=== PATIENT | male | born 1990 | race Caucasian/White ===

== ENCOUNTER 2024-03-09 17:56 | Emergency (ER) | payer SELFPAY ==
[~2024-03-09] VITALS: Ht 180.3 cm; Wt 137.9 kg
[2024-03-09 18:14] VITALS: O2SAT 99
[2024-03-09] MEDS ORDERED: EFEX1 PO (18:45)
[2024-03-09] MEDS ORDERED: HYDR-459 MT (18:45)
[2024-03-09] MEDS ORDERED: TRAZ-251 MT (18:55)
[2024-03-09] MEDS: HYDROXYZINE 25MG TABLET PO ONE (18:59)
[2024-03-09 19:00] VITALS: BP 149/87; PULSE 100; RESP 17; TEMP 98.2
== END 2024-03-09 19:01 | disposition home or self-care (01) ==
LOC: ER 17:56
DX: F31.9 Bipolar disorder, unspecified (principal); F20.9 Schizophrenia, unspecified; Z76.0 Encounter for issue of repeat prescription
CPT/HCPCS: 99283

== ENCOUNTER 2024-03-11 10:44 | Emergency (ER) | payer SELFPAY ==
[~2024-03-11] VITALS: Ht 177.8 cm; Wt 125.0 kg
[~2024-03-11 10:44] MED LIST: EFEX1 PO; HYDR-459 MT; TRAZ-251 MT
[2024-03-11 10:45] VITALS: O2SAT 100
[2024-03-11] MEDS: HALOPERIDOL LACTATE 5MG/ML VIAL IM ONE (12:24)
[2024-03-11 13:37] LABS: BASOPHILS % 0.2 % (0.0-2.0); HEMATOCRIT. 39.1 % (42.0-52.0); HEMOGLOBIN. 13.4 g/dL (14.0-18.0); LYMPHOCYTES % 14.3 % (20.0-50.0); MEAN CORPUSCULAR HEMOGLOBIN 27.5 pg (28.0-32.0); MEAN CORPUSCULAR HGB CONC 34.3 g/dL (31.0-37.0); MEAN CORPUSCULAR VOLUME 80.1 fL (80.0-94.0); MEAN PLATELET VOLUME 7.7 fl (7.4-10.4); MONOCYTES % 6.8 % (2.0-8.0); NEUTROPHILS % 78.7 % (40.0-76.0); PLATELET 304 x1000/uL (130-400); RED BLOOD CELL COUNT 4.88 mill/uL (4.7-6.1); RED CELL DISTRIBUTION WIDTH 13.9 % (11.6-14.6); WHITE BLOOD COUNT 14.4 x1000/uL (4.5-11.0)
[2024-03-11 13:44] LABS: CHLORIDE 104 mEq/L (98-107); POTASSIUM 3.6 mEq/L (3.5-5.1); SODIUM 136 mEq/L (136-145)
[2024-03-11 13:45] LABS: CARBON DIOXIDE 23 mEq/L (21-32)
[2024-03-11 13:50] LABS: GLUCOSE 155 mg/dL (70-105)
[2024-03-11 13:51] LABS: ETHANOL BLOOD < 10 mg/dL (<10); UREA NITROGEN BLOOD 23 mg/dL (9-23)
[2024-03-11 13:52] LABS: ACETAMINOPHEN < 2 ug/mL (10-30); ALANINE AMINOTRANSFERASE 19 IU/L (10-49); ALBUMIN 4.1 g/dL (3.2-4.8); ASPARTATE AMINOTRANSFERASE 31 IU/L (<34)
[2024-03-11 13:53] LABS: BILIRUBIN TOTAL 1.2 mg/dL (0.1-1.0)
[2024-03-11] MEDS: SODIUM CHLORIDE 0.9% 1,000 ML IV ONE (16:48)
[2024-03-11] MEDS: OLANZAPINE 5MG TABLET ODT PO SCH (17:25)
[2024-03-12 01:20] LABS: CLARITY URINE CLOUDY (CLEAR); COLOR URINE DARK YELLOW (YELLOW); GLUCOSE URINE NEGATIVE (NEGATIVE); KETONES URINE 1+ (NEGATIVE); LEUKOCYTE ESTERASE URINE NEGATIVE (NEGATIVE); NITRITE URINE NEGATIVE (NEGATIVE); OCCULT BLOOD URINE NEGATIVE (NEGATIVE); PH URINE 5.5 (4.5-8.0); PROTEIN URINE TRACE (NEGATIVE); UROBILINOGEN URINE 0.2 E.U./dL (0.2-1.0)
[2024-03-12 03:03] LABS: *AMPHETAMINES SCREEN URINE PRESUMPTIVE POSITIVE (NEGATIVE); *BARBITURATES SCREEN URINE NEGATIVE (NEGATIVE); *BENZODIAZEPINES SCREEN URINE PRESUMPTIVE POSITIVE (NEGATIVE); *COCAINE SCREEN URINE NEGATIVE (NEGATIVE); CANNABINOID URINE SCREEN NEGATIVE (NEGATIVE); ECSTASY MDMA SCREEN URINE CONF.TEST INDICATED (NEGATIVE); METHADONE URINE SCREEN NEGATIVE (NEGATIVE); OPIATES URINE SCREEN NEGATIVE (NEGATIVE); PHENCYCLIDINE URINE SCREEN NEGATIVE (NEGATIVE)
[2024-03-12 04:22] LABS: BACTERIA URINE 1+; MUCUS URINE 2+ /lpf (NONE/TRACE); RBC URINE NONE SEEN /hpf (0-2); SQUAMOUS EPITHELIAL CELL URINE 2+ /lpf (RARE/1+); WBC URINE NONE SEEN /hpf (0-2)
[2024-03-12] MEDS ORDERED: VENLAFAXINE HCL 75MG TABLET PO SCH (13:15)
[2024-03-12] MEDS: VENLAFAXINE HCL 37.5MG TABLET PO SCH (15:00)
[2024-03-12 16:45] VITALS: BP 125/71; PULSE 70; RESP 16; TEMP 97.9
== END 2024-03-12 16:53 | disposition short-term general hospital (02) ==
LOC: ER 10:44
DX: F20.9 Schizophrenia, unspecified (principal); F15.10 Other stimulant abuse, uncomplicated; F31.9 Bipolar disorder, unspecified; Z20.822 Contact with and (suspected) exposure to COVID-19
CPT/HCPCS: 80053; 80305; 81003; 80307; 80329; 80320; 85025; 36415; 96372; 99285; 87426; J1630; J7030; G0480